=== PATIENT | male | born 1995 | race Caucasian/White ===

== ENCOUNTER 2018-06-19 15:01 | Emergency (ER) | payer MEDICAID ==
[~2018-06-19] VITALS: Ht 165.1 cm; Wt 93.1 kg
[2018-06-19 15:19] VITALS: BP 137/84
--- NOTE | 2018-06-19 17:00 | NUR ---
PT C/O PENILE DISCOLORATION AND FISH LIKE ODOR X 2 MONTHS. HX;CHLAMYDIAVSS; PATIENT POSITIONED FOR COMFORT; HOB ELEVATED; BEDRAILS UP X1; BED DOWN. ER MADE AWARE OF PT STATUS.
[2018-06-19 18:10] LABS: APPEARANCE,URINE CLEAR (CLEAR)
[2018-06-19 18:11] LABS: BILIRUBIN,URINE NEGATIVE (NEGATIVE); BLOOD, URINE NEGATIVE (NEGATIVE); COLOR,URINE YELLOW (YELLOW); LEUKOCYTE ESTERASE ,URINE NEGATIVE (NEGATIVE); NITRITE, URINE NEGATIVE (NEGATIVE); UGLUCOSE NEGATIVE (NEGATIVE)
--- NOTE | 2018-06-19 18:58 | NUR ---
Dr. Andrade evaluating patient at bedside.
[2018-06-19] MEDS ORDERED: AZITHROMYCIN 250 MG TAB PO ONE (19:05)
[2018-06-19] MEDS ORDERED: FLUCONAZOLE 100 MG TAB PO ONE (19:05)
[2018-06-19] MEDS ORDERED: cefTRIAXone 250 MG in LIDOCAINE MPF 1% - 5 mL VIAL 0.9 ML IM ONE (19:05)
--- NOTE | 2018-06-19 19:20 | NUR ---
NURSE CUSTOMER EXPERIENCE MANAGER CALLED FOR FLUCONAZOLE
[2018-06-19] MEDS ORDERED: FLUCONAZOLE 100 MG TAB ONE (19:36)
--- NOTE | 2018-06-19 19:54 | NUR ---
Patient discharged with v/s stable. Written and verbal after care instructions given and explained. Patient alert, oriented and verbalized understanding of instructions. Ambulatory with steady gait. All questions addressed prior to discharge. ID band removed. Patient advised to follow up with PMD. Rx of CLOTRIMAZOLE given. Patient educated on indication of medication including possible reaction and side effects. Opportunity to ask questions provided and answered.
[2018-06-19 19:56] VITALS: BP 105/82
[2018-06-22 06:30] LABS: CHLAMYDIA TRACHOMATIS AMP DNA Negative (Negative)
== END 2018-06-19 19:54 | disposition home or self-care (01) ==
LOC: MED 15:01
DX: N48.89 Other specified disorders of penis (principal)
CPT/HCPCS: 36415; 81003; 87491; 96372; 99284; J0696; J2001